=== PATIENT | male | born 1945 | race Two or more races ===

== ENCOUNTER → 2016-12-19 | Outpatient (CLI) | payer MEDICARE | END | disposition home or self-care (01) | LOC: EKG 14:52 | PROVIDERS: ATTEND Internal Medicine Cardiovascular Disease | DX: I45.9 Conduction disorder, unspecified (principal) | CPT/HCPCS: 93225 ==

== ENCOUNTER → 2017-05-30 | Outpatient (CLI) | payer MEDICARE | END | disposition home or self-care (01) | LOC: ECHO 12:44 | DX: I25.10 Atherosclerotic heart disease of native coronary artery without angina pectoris (principal); I10 Essential (primary) hypertension | CPT/HCPCS: 93306 ==

== ENCOUNTER → 2019-01-22 | Outpatient (CLI) | payer MEDICARE ==
[~2019-01-22] MED LIST: REGADENOSON 0.4 MG/5 ML DISP.SYRIN. IV ONE
--- NOTE | 2019-01-22 11:53 | RAD ---
MR#: [id number] Date of Study: 01/22/2019 Ordering Physician: KEENAN REYEZ, Referring Physician: FAHEEM BUTLER Tech: WINDY Pena, ARRT (R) (N) APPROVED REPORT Test Type: Pharmacological Stress Nurse/Tech: Hola Ortega RN Test Indications: CAD Cardiac History: CABG 2012, HTN, See EMR Medications: ASA, See EMR Medical History: DM, See EMR Resting ECG: SR Resting Heart Rate: 68 bpm Resting Blood Pressure: 143/79mmHg Pretest Chest Pain: No chest pain Nurse/Tech Notes Lungs CTA, Heart tones regular. Consent: The procedure was explained to the patient in lay terms. Informed consent was witnessed. Sam eout was entered into [employer]. History and Stress Test performed by NINA Liu Pharm. Details Pharmacologic stress testing was performed using 0.4mg per 5ml of regadenoson given intravenously ove r 7-10 seconds. Stress Symptoms No chest pain or symptoms. POST EXERCISE Reason for Termination: Infusion complete Max HR: 93 bpm Max Blood Pressure: 153/72mmHg Blood Pressure response to exercise: Normal blood pressure response during stress. Heart Rate response to exercise: WNL Chest Pain: No. Arrhythmia: No. ST Change: No. INTERPRETATION Stress EKG Conclusion: Baseline EKG showed sinus rhythm. No ischemic changes at peak stress. No arr hythmias. Imaging Protocol IMAGE PROTOCOL: Rest Tc-99m/stress Tc-99m 1 day Rest: Stress: Viability: Radiopharm.Tc99m QjhdrzxhiOc60v Sestamibi Vbaj67dPy 33mCi Img Date 01/22/2019 01/22/2019 Inj-Img Uhqk64fba. 60min. Rest Admin Site:IV - Right AntecubitalAdministrator:NINA Liu Stress Admin Site: IV - Right AntecubitalAdministrator: NINA Liu STRESS DATA End Diast. Vol.68.0mlLVEDV index BSA34.0ml End Syst. Vol.13.0mlLVESV index BSA6.0ml Myocardial Lbgh465.0gEject. Jdtwtafh29.0% Stress Scores Regional WT0.00Summed WT2.00 Regional WM0.00Summed WM1.00 Study quality was good. Left Ventricular size was Normal at Rest and Stress. Lung uptake was . Left Ventricular ejection fraction is 76%. The rest and stress images show normal perfusion, normal contraction and thickening. LV Perf. Quant 17 Seg. SSS0.00 17 Seg. SRS0.00 17 Seg. SDS0.00 Stress Defect Extent (% LAD)0.00Rest Defect Extent (% LAD)0.00Rev. Defect Extent (% LAD)0.00 Stress Defect Extent (% LCX) 0.00Rest Defect Extent (% LCX)0.00Rev. Defect Extent (% LCX)0.00 Stress Defect Extent (% RCA)0.00Rest Defect Extent (% RCA)0.00Rev. Defect Extent (% RCA)0.00 Stress Defect Extent (% YADIRA)0.00Rest Defect Extent (% YADIRA)0.00Rev. Defect Extent (% YADIRA)0.00 Conclusion 1. Regadenoson cardioisotope stress test did not show any evidence of ischemia or infarct. 2. Normal left ventricular systolic function with ejection fraction calculated at 76%. 3. Low risk for cardiac events. Signed by : Keenan Reyez, Electronically Approved : 01/22/2019 11:52:46
== END | disposition home or self-care (01) ==
LOC: NM 08:15
PROVIDERS: ATTEND Internal Medicine Cardiovascular Disease
DX: I25.10 Atherosclerotic heart disease of native coronary artery without angina pectoris (principal); I10 Essential (primary) hypertension; E11.9 Type 2 diabetes mellitus without complications; Z95.1 Presence of aortocoronary bypass graft
CPT/HCPCS: 78452; 93017; A9500; J2785

== ENCOUNTER → 2019-04-21 | Outpatient (CLI) | payer MEDICARE ==
--- NOTE | 2019-04-21 17:08 | RAD ---
EXAM: Renal sonogram. HISTORY: Gross hematuria. TECHNIQUE: Sonographic imaging of the kidneys and bladder was performed. COMPARISON: None. FINDINGS: The kidneys are normal in size. No focal hepatic lesion is seen. There is hepatic steatosis. The prevoid bladder volume is 188 cc. The post void bladder volume is 52 cc. There are 2 masses with internal blood flow projecting into the bladder lumen from the bladder wall measuring measuring 1.9 cm and 1.8 cm. IMPRESSION: 1. 2 solid masses along the urinary bladder wall projecting into the bladder lumen measuring 1.9 cm and 1.8 cm. The imaging appearance is concerning for neoplasm. Correlate with cystoscopy. 2. Post void bladder residual 52 cc. 3. Sonographically unremarkable kidneys. Electronically signed by: Wanda Ely MD (04/21/2019 5:05 PM) [facility]
== END | disposition home or self-care (01) ==
LOC: US 15:09
PROVIDERS: ATTEND Nurse Practitioner Gerontology
DX: N32.89 Other specified disorders of bladder (principal); K76.0 Fatty (change of) liver, not elsewhere classified; R31.0 Gross hematuria; I10 Essential (primary) hypertension; E11.9 Type 2 diabetes mellitus without complications
CPT/HCPCS: 76770

== ENCOUNTER → 2020-08-08 | Outpatient (CLI) | payer MEDICARE ==
--- NOTE | 2020-08-10 09:25 | CARD ---
MR#: [id number] Date of Study: 08/08/2020 Ordering Physician: KEENAN REYEZ, Referring Physician: KEENAN REYEZ Tech: Natividad Givens [facility] APPROVED REPORT EXAM: Two-dimensional and M-mode echocardiogram with Doppler and color Doppler. Other Information Quality : AverageHR: 69bpm Rhythm : NSR INDICATION CAD 2D DIMENSIONS RVDd3.1 (2.9-3.5cm)Left Atrium(2D)4.0 (1.6-4.0cm) IVSd1.1 (0.7-1.1cm)Aortic Root(2D)3.0 (2.0-3.7cm) LVDd4.7 (3.9-5.9cm)LVOT Diameter1.9 (1.8-2.4cm) PWd1.0 (0.7-1.1cm)LVDs2.7 (2.5-4.0cm) FS (%) 43.8 %SV77.8 ml Aortic Valve AoV Peak Bryant.107.9cm/sAoV VTI24.3cm AO Peak GR.4.7mmHgLVOT Peak Bryant.102.6cm/s AO Mean GR.3mmHgAVA (VMAX)2.82cm2 Mitral Valve MV E Gsndoiwb97.4cm/sMV DECEL FRCA635sm MV A Yrzasfzv68.2cm/sE/A Ratio1.0 Tricuspid Valve TR P. Kmihybsp705fo/sTR Peak Gr.35mmHg LEFT VENTRICLE The left ventricle is normal size. There is normal left ventricular wall thickness. The left ventricu lar systolic function is normal and the ejection fraction is within normal range. LV ejection fractio n of 55-60%. There is normal LV segmental wall motion. The left ventricular diastolic function and fi lling is normal for age. RIGHT VENTRICLE The right ventricle is normal size. There is normal right ventricular wall thickness. The right ventr icular systolic function is normal. ATRIA The left atrium size is normal. The right atrium size is normal. The interatrial septum is intact wit h no evidence for an atrial septal defect or patent foramen ovale as noted on 2-D or Doppler imaging. AORTIC VALVE The aortic valve is normal in structure and function. Doppler and Color Flow revealed no significant aortic regurgitation. There is no significant aortic valvular stenosis. MITRAL VALVE The mitral valve is normal in structure and function. There is no evidence of mitral valve prolapse. There is no mitral valve stenosis. Doppler and Color-flow revealed trace mitral regurgitation. TRICUSPID VALVE The tricuspid valve is normal in structure and function. Doppler and Color Flow revealed trace to mil d tricuspid regurgitation. PULMONIC VALVE The pulmonary valve is normal in structure and function. Doppler and Color Flow revealed trace pulmon ic valvular regurgitation. GREAT VESSELS The aortic root is normal in size. The ascending aorta is normal in size. The IVC is normal in size a nd collapses >50% with inspiration. PERICARDIAL EFFUSION There is no evidence of significant pericardial effusion. Critical Notification Critical Value: No <Conclusion> The left ventricle is normal size. The left ventricular systolic function is normal and the ejection fraction is within normal range. LV ejection fraction of 55-60%. Doppler and Color Flow revealed no significant aortic regurgitation. There is no significant aortic valvular stenosis. Doppler and Color-flow revealed trace mitral regurgitation. Doppler and Color Flow revealed trace to mild tricuspid regurgitation. Signed by : Cornelius Tovar MD Electronically Approved : 08/10/2020 09:25:04
== END ==
LOC: ECHO 14:43
PROVIDERS: ATTEND Internal Medicine Cardiovascular Disease
DX: I36.1 Nonrheumatic tricuspid (valve) insufficiency (principal); I25.10 Atherosclerotic heart disease of native coronary artery without angina pectoris
CPT/HCPCS: 93306

== ENCOUNTER → 2021-08-16 | Outpatient (CLI) | payer MEDICARE ==
--- NOTE | 2021-08-17 17:30 | CARD ---
MR#: [id number] Date of Study: 08/16/2021 Ordering Physician: KEENAN REYEZ, Referring Physician: Manda BUTLER: Arie Krishna [facility] APPROVED REPORT EXAM: Two-dimensional and M-mode echocardiogram with Doppler and color Doppler. Other Information Quality : AverageHR: 57bpm Rhythm : NSR INDICATION Cardiac Disease: CAD 2D DIMENSIONS Left Atrium(2D)4.0 (1.6-4.0cm)IVSd0.9 (0.7-1.1cm) Aortic Root(2D)3.0 (2.0-3.7cm)LVDd5.1 (3.9-5.9cm) LVOT Diameter2.0 (1.8-2.4cm)PWd1.0 (0.7-1.1cm) LA Wfgjig16 (18-58mL)LVDs3.3 (2.5-4.0cm) FS (%) 35.7 %SV81.0 ml LVEF(%)64.8 (>50%) Aortic Valve AoV Peak Bryant.111.8cm/sAoV VTI23.2cm AO Peak GR.5.0mmHgLVOT Peak Bryant.94.8cm/s LVOT VTI 21.02cmAO Mean GR.3mmHg YAMILETH (VMAX)2.64eq0IEQ (VTI)2.94cm2 Mitral Valve MV E Erpqahae41.8cm/sMV DECEL NFYM224ls MV A Lujafyts84.4cm/sMV YEE99qz E/A Ratio0.8MVA (PHT)2.58cm2 TDI E/Lateral E'6.2E/Medial E'7.0 Pulmonary Valve PV Peak Lsescxjy308.8cm/sPV Peak Grad.7mmHg Tricuspid Valve TR P. Gwmamtgw995ny/sTR Peak Gr.27mmHg Pulmonary Vein S1 Arlavsle74.2cm/sD2 Nlkppsqk71.3cm/s LEFT VENTRICLE The left ventricle is normal size. There is normal left ventricular wall thickness. The left ventricu lar systolic function is normal and the ejection fraction is within normal range. EF 55% Septal motio n suggestive of prior sternotomy. Otherwise, there is normal LV segmental wall motion. Transmitral Do ppler flow pattern is Grade I-abnormal relaxation pattern. No left ventricle thrombus noted on this s tudy. There is no ventricular septal defect visualized. There is no left ventricular aneurysm. There is no mass noted in the left ventricle. RIGHT VENTRICLE The right ventricle is normal size. There is normal right ventricular wall thickness. The right ventr icular systolic function is normal. ATRIA The left atrium is borderline dilated. The right atrium size is normal. The interatrial septum is int act with no evidence for an atrial septal defect or patent foramen ovale as noted on 2-D or Doppler i maging. AORTIC VALVE The aortic valve is normal in structure and function. Doppler and Color Flow revealed no significant aortic regurgitation. There is no significant aortic valvular stenosis. There is no aortic valvular v egetation. MITRAL VALVE The mitral valve is normal in structure and function. There is no evidence of mitral valve prolapse. There is no mitral valve stenosis. Doppler and Color-flow revealed trace to mild mitral regurgitation . TRICUSPID VALVE The tricuspid valve is normal in structure and function. Doppler and Color Flow revealed trace tricus pid regurgitation. There is no tricuspid valve prolapse or vegetation. There is no tricuspid valve st enosis. PULMONIC VALVE Doppler and Color Flow revealed no pulmonic valvular regurgitation. There is no pulmonic valvular cristobal nosis. GREAT VESSELS The aortic root is normal in size. The ascending aorta is normal in size. The pulmonary artery is nor mal. The IVC is normal in size and collapses >50% with inspiration. PERICARDIAL EFFUSION There is no pleural effusion. There is no evidence of significant pericardial effusion. Critical Notification Critical Value: No <Conclusion> The left ventricular systolic function is normal and the ejection fraction is within normal range. EF 55% Septal motion suggestive of prior sternotomy. Otherwise, there is normal LV segmental wall motion. Signed by : Raphael Kevin, Electronically Approved : 08/17/2021 17:30:15
== END ==
LOC: ECHO 14:47
PROVIDERS: ATTEND Internal Medicine Cardiovascular Disease
DX: I07.1 Rheumatic tricuspid insufficiency (principal); I25.10 Atherosclerotic heart disease of native coronary artery without angina pectoris
CPT/HCPCS: 93306; C8929